=== PATIENT | female | born 1985 | race Hispanic/Latino ===

== ENCOUNTER 2021-12-21 11:59 | Emergency (ER) | payer OTHER ==
[~2021-12-21] VITALS: Ht 152.4 cm; Wt 66.2 kg
[2021-12-21 12:09] VITALS: BP 114/74
[2021-12-21] MEDS ORDERED: ACETAMINOPHEN 500 MG TABLET PO ONE (12:30)
[2021-12-21 14:12] LABS: APPEARANCE,URINE SL CLOUDY (CLEAR); BILIRUBIN,URINE NEGATIVE (NEGATIVE); COLOR,URINE YELLOW (YELLOW); GLUCOSE, URINE (UA) NEGATIVE (NEGATIVE); KETONES,URINE NEGATIVE (NEGATIVE); LEUKOCYTE ESTERASE ,URINE TRACE (NEGATIVE); NITRATE,URINE NEGATIVE (NEGATIVE); OCCULT BLOOD,URINE NEGATIVE (NEGATIVE); PH,URINE 6.5 (5.0-8.0); PROTEIN,URINE NEGATIVE (NEGATIVE)
[2021-12-21 14:22] LABS: HCG,QUALITATIVE URINE NEGATIVE (NEGATIVE)
[2021-12-21 14:56] LABS: BACTERIA,URINE Few /HPF (None Seen); MUCUS,URINE Few LPF (None Seen); SQUAMOUS EPITHELIAL CELL,UR Moderate /HPF (0-2)
[2021-12-21 14:58] LABS: CALCIUM OXALATE CRYSTALS,UR Rare /LPF (None Seen)
== END 2021-12-21 14:45 | disposition home or self-care (01) ==
LOC: EDH 11:59
DX: M54.2 Cervicalgia (principal); M25.552 Pain in left hip; M54.6 Pain in thoracic spine; V49.59XA Passenger injured in collision with other motor vehicles in traffic accident, initial encounter; Y93.89 Activity, other specified; Y92.413 State road as the place of occurrence of the external cause; Y99.8 Other external cause status
CPT/HCPCS: 70450; 72125; 73502; 81001; 81025; 82948; 87088

== ENCOUNTER 2022-02-28 08:42 | Emergency (ER) | payer OTHER ==
[~2022-02-28] VITALS: Ht 154.9 cm; Wt 63.5 kg
[2022-02-28] MEDS ORDERED: ACETAMINOPHEN 500 MG TABLET PO ONE (09:00)
[2022-02-28] MEDS ORDERED: D-ME118S47 PO (10:09)
[2022-02-28] MEDS ORDERED: ACET-66 PO (10:09)
[2022-02-28] MEDS ORDERED: IBUP-2070 PO (10:09)
[2022-02-28] MEDS ORDERED: OSEL75 PO (10:09)
[2022-02-28 10:13] VITALS: BP 124/78
== END 2022-02-28 10:18 | disposition home or self-care (01) ==
LOC: EDH 08:42
DX: J10.1 Influenza due to other identified influenza virus with other respiratory manifestations (principal); Z20.822 Contact with and (suspected) exposure to COVID-19; Z79.1 Long term (current) use of non-steroidal anti-inflammatories (NSAID)
CPT/HCPCS: 99283; 87635; 87804 ×2; C9803

== ENCOUNTER 2024-08-10 20:35 | Emergency (ER) | payer SELFPAY ==
[~2024-08-10] VITALS: Ht 152.4 cm; Wt 71.0 kg
[~2024-08-10 20:35] MED LIST: ACET-66 PO; BROM118S48 PO; IBUP-2070 PO; OSEL75 PO
[2024-08-10] MEDS: 0.9%NACL 1000ML 1,000 ML IV ONE (20:55)
--- NOTE | 2024-08-10 20:58 | ERN ---
ED Note History of Present Illness Stated Complaint: FEVER, HEADACHE, SYNCOPE Chief Complaint: Multiple Complaints Time Seen by MD: 20:45 Dictation: PATIENT IS A 39-YEAR-OLD FEMALE HERE WITH COMPLAINTS OF HAVING A SYNCOPAL EPISODE WITH A HEADACHE ONSET WHILE SHE WAS WALKING. NO NAUSEA VOMITING STATES SHE HAS HAD A FEVER. SHE STATES SHE HAS ALSO APPROXIMATELY 7-8 WEEKS , G 6P5 NO CARE. SHE STATES SHE HAS BEEN TO [facility] HOWEVER HAS NOT SEEN AN NEUROLOGY TEACHER DOCTOR [facility] IS 0. DENIES VAGINAL BLEEDING CRAMPING DISCHARGE Allergies: Coded Allergies: No Known Allergies (Unverified Allergy, Unknown, 12/21/21) Home Meds Active Scripts D-Methorphan Hb/P-Epd HCl/Bpm (Bromfed Dm Cough Syrup) 118 Ml Syrup, 10 ML PO QI D for COUGH, #120 ML Prov:DAVID HAYDEN MD 02/28/22 Oseltamivir Phosphate (Tamiflu) 75 Mg Cap, 75 MG PO BID for 5 Days, #10 CAP Prov:DAVID HAYDEN MD 02/28/22 Ibuprofen (Ibuprofen) 600 Mg Tablet, 600 MG PO Q6H PRN for PAIN, #30 TAB Prov:DAVID HAYDEN MD 02/28/22 Acetaminophen (Acetaminophen) 500 Mg Tablet, 1000 MG PO QID for FEVER, #50 TAB Prov:DAVID HAYDEN MD 02/28/22 Past Medical History Past Medical History: No Pertinent History Surgical History: Surgical History Other: X FIVE Social History: Negative, Lives with family History: Not Applicable LMP: Jun 25, 2024 : 6 Para: 5 RN Note Reviewed/Agreed w/PFSH: Yes Review of System Dictation CONSTITUTIONAL: NEGATIVE EXCEPT FOR HPI HEAD/FACE: NEGATIVE EXCEPT FOR HPI EENT: NEGATIVE EXCEPT FOR HPI RESPIRATORY: NEGATIVE EXCEPT FOR HPI GASTROINTESTINAL/ABDOMINAL: NEGATIVE EXCEPT FOR HPI GENITOURINARY: NEGATIVE EXCEPT FOR HPI MUSCULOSKELETAL: NEGATIVE EXCEPT FOR HPI INTEGUMENTARY: NEGATIVE EXCEPT FOR HPI NEUROLOGICAL/PSYCH: NEGATIVE EXCEPT FOR HPI HEADACHE NEAR-SYNCOPE HEMATOLOGIC/LYMPHATIC: NEGATIVE EXCEPT FOR HPI ALL SYSTEMS NEGATIVE, EXCEPT NOTED ABOVE. 13 POINT REVIEW OF SYSTEMS ASSESSED AND ALL NEGATIVE EXCEPT FOR ABOVE. Initial Vital Sign VS Vital Signs Date Time Temp Pulse Resp B/P (MAP) Pulse Ox O2 Delivery O2 Flow Rate FiO2 08/10/24 20:37 98.2 87 16 129/79 100 Room Air 08/10/24 20:49 0 21 Physical Exam Dictation VITAL SIGNS REVIEWED GENERAL APPEARANCE: ALERT, ORIENTED X 3, NO ACUTE DISTRESS, WELL DEVELOPED, NOURISHED. HEAD AND FACE: NON-TRAUMATIC. EYES: PERRL, PINK CONJUNCTIVAS, EYELID NO TRAUMA, ANTERIOR CHAMBER WITH ARCUS SENILIS. EARS: PINNAS INTACT AND NO SIGNS OF TRAUMA OR ERYTHEMA EAR CANALS CLEAR AND NO DISCHARGE TM NO ERYTHEMA NOSE: NO DISCHARGE, NO BLEEDING. OROPHARYNX: MOUTH NORMAL, TONGUE PINK, PHARYNX CLEAR,NO ERYTHEMA, TONSILS NO EXUDATES, NO ABSCESSES NOTED, MUCOUS MEMBRANE MOIST NECK: SUPPLE, NON-TENDER, NO THYROMEGALY, NO MASSES, NO JVD, NO BRUITS BREAST:DEFERRED CHEST:NO TENDERNESS, NO CREPITUS, NO PARADOXICAL MOVEMENT, NO RETRACTIONS LUNGS:CLEAR, WELL-VENTILATED, SYMMETRIC, NO RALES, NO WHEEZING, NO RHONCHI, NO STRIDOR, GOOD BREATH SOUNDS BILATERALLY HEART: REGULAR RATE, REGULAR RHYTHM, NO MURMUR, NO GALLOPS VASCULAR: NO PERIPHERAL EDEMA, ABDOMEN: SOFT, POSITIVE BOWEL SOUNDS, NONDISTENDED, NO GUARDING, NONTENDER, NO REBOUND, NO MASSES NO HEPATOMEGALY, NO SPLENOMEGALY, NO STARR'S SIGN, NO HERNIAS. RECTAL: DEFERRED GENITAL: DEFERRED NEUROLOGICAL: NORMAL SPEECH, MOTOR FUNCTION INTACT, SENSORY FUNCTION INTACT NIH IS 0 MUSCULOSKELETAL: NECK NONTENDER, FULL RANGE OF MOTION, BACK NONTENDER, FULL RA NGE OF MOTION, EXTREMITIES: NONTENDER, FULL RANGE OF MOTION SKIN: COLOR PINK, DRY, NO TURGOR, NO RASH, NO LACERATIONS, NO ABRASIONS, NO CONTUSIONS. LYMPHATIC: DEFERRED Results (Laboratory/Radiology) Laboratory/Radiology Laboratory Tests Test 08/10/24 20:48 08/10/24 21:46 White Blood Count 11.0 K/uL (4.8-10.8) H Red Blood Count 3.90 MIL/uL (4.00-5.50) L Hemoglobin 12.1 g/dL (12.0-16.0) Hematocrit 35.7 % (36-48) L Mean Corpuscular Volume 91.5 fL (79-99) Mean Corpuscular Hemoglobin 31.0 pg (27.0-33.0) Mean Corpuscular Hemoglobin Concent 33.9 g/dL (32.0-36.0) Red Cell Distribution Width 12.4 % (11.0-15.5) Platelet Count 214 K/uL (130-400) Mean Platelet Volume 10.3 fL (7.5-10.5) Immature Granulocyte % (Auto) 0.5 % (0-1) Neutrophils (%) (Auto) 65.7 % (40.0-77.0) Lymphocytes (%) (Auto) 24.5 % (21.0-51.0) Monocytes (%) (Auto) 6.3 % (3.0-13.0) Eosinophils (%) (Auto) 2.5 % (0.0-8.0) Basophils (%) (Auto) 0.5 % (0.0-5.0) Neutrophils # (Auto) 7.2 K/uL (1.8-7.7) Lymphocytes # (Auto) 2.7 K/uL (1.0-4.8) Monocytes # (Auto) 0.7 K/uL (0.1-1.0) Eosinophils # (Auto) 0.27 K/uL (0.00-0.70) Basophils # (Auto) 0.05 K/uL (0.00-0.20) Absolute Immature Granulocyte (auto 0.06 K/uL (0-1) Nucleated Red Blood Cells 0.0 % (0.0-0.19) Sodium Level 137 mmol/L (136-145) Potassium Level 3.7 mmol/L (3.5-5.1) Chloride Level 100 mmol/L (101-111) L Carbon Dioxide Level 25 mmol/L (21-32) Blood Urea Nitrogen 13 mg/dL (7-18) Creatinine 0.9 mg/dL (0.5-1.0) Glomerular Filtration Rate Calc 83 mL/min (>90) Random Glucose 102 mg/dL (70-105) Total Calcium 8.9 mg/dL (8.5-10.1) Troponin I High Sensitivity < 4 ng/L (4-50) L Human Chorionic Gonadotropin, Quant 97103 mIU/mL (0-5) H Urine Color STRAW (YELLOW) Urine Appearance CLEAR (CLEAR) Urine pH 6.5 (5.0-8.0) Urine Specific [place] 1.005 (1.001-1.031) Urine Protein NEGATIVE mg/dL (NEGATIVE) Urine Glucose (UA) NEGATIVE mg/dL (NEGATIVE) Urine Ketones NEGATIVE mg/dL (NEGATIVE) Urine Occult Blood NEGATIVE (NEGATIVE) Urine Nitrate NEGATIVE (NEGATIVE) Urine Bilirubin NEGATIVE mg/dL (NEGATIVE) Urine Urobilinogen 0.2 mg/dL (0.2-1.0) Urine Leukocyte Esterase NEGATIVE Víctor/uL Labs Reviewed?: Yes EKG: (+) NSR EKG Comment: EKG NORMAL SINUS RHYTHM/HEART RATE 92/AXIS NORMAL/NO ECTOPY ED Course ED Course Orders Procedure Category Date Status Time Cbc With Differential LAB 08/10/24 Complete 20:51 Troponin I High LAB 08/10/24 Complete Sensitivity 20:51 Hcg,Quantitative LAB 08/10/24 Complete 20:51 12 Lead Ekg Tracing- EKG 08/10/24 Complete Technical 20:51 0.9%Nacl 1000ml (Ns PHA 08/10/24 Complete 1000ml) 21:00 Basic Metabolic Panel LAB 08/10/24 Complete 20:51 Us Ob <14 Weeks US 08/10/24 Taken 20:52 Type And Screen BBK 08/10/24 Complete 20:52 Urinalysis Profile LAB 08/10/24 Complete 21:47 Current Medications Medications (Trade) Dose Ordered Sig/Seth Route PRN Reason Start Time Stop Time Status Last Admin Dose Admin Sodium Chloride 1,000 ml @ 0 mls/hr ONCE ONCE IV 08/10/24 21:00 08/10/24 21:01 DC 08/10/24 20:55 Vital Signs Date Time Temp Pulse Resp B/P (MAP) Pulse Ox O2 Delivery O2 Flow Rate FiO2 08/10/24 20:49 98.4 92 20 142/93 98 Room Air* 0 21 08/10/24 20:37 98.2 87 16 129/79 100 Room Air OB ULTRASOUND DEMONSTRATES SAC WITH NO POLE. NO VAGINAL BLEEDING. TOO EARLY NIH IS 0 HEART Score Response (Comments) Value History: Low suspicion (0) 0 EKG: Normal 0 Age: < 45yrs (0) 0 Risk Factors: No known risk factors (0) 0 Initial Troponin: Normal limit (0) 0 Total 0 Medical Decision Making MDM MEDICAL DISCHARGE MAKING BASED ON BASIC LABS/EKG AND OB ULTRASOUND. LABS ESSENTIALLY UNREMARKABLE OB ULTRASOUND DEMONSTRATES SAC WITHOUT POLE OR HEART TONES AT THIS TIME QUANT 97900 PATIENT ADVISED TO CONTINUE TYLENOL [id number], CONTINUE VITAMINS, SEE HER NEUROLOGY TEACHER DOCTOR DX & DISP Disposition: Discharge Departure Impression: Primary Impression: Vasovagal near-syncope Additional Impressions: at early stage, Dehydration Condition: Stable Additional Instructions: FOLLOW-UP WITH PRIMARY CARE PROVIDER IN 1 TO 2 DAYS. TAKE MEDICATIONS DIRECTED HERE IN THE EMERGENCY ROOM. OKAY TO CONTINUE HOME MEDICATIONS UNLESS OTHERWISE DISCUSSED DURING YOUR VISIT IN THE EMERGENCY ROOM TODAY. RETURN TO YOUR NEAREST EMERGENCY ROOM IF SYMPTOMS WORSEN OR IF THERE IS NO IMPROVEMENT. CALL 911 IF YOU NEED IMMEDIATE ASSISTANCE. TAKE TYLENO [id number] NEEDED AND IF NO CONTRAINDICATIONS ARE PRESENT. INCREASE ORAL HYDRATION. A WOUND CULTURE OR URINE CULTURE WAS ORDERED HERE IN THE EMERGENCY ROOM DEPARTMENT PLEASE FOLLOW-UP WITH PRIMARY CARE PROVIDER AND ADVISE THEM TO GET REPEAT PORTS FROM OUR FACILITY. IF YOU HAD ANY IGOR WRAP/SPLINTS THAT WERE APPLIED HERE, PLEASE DO NOT REMOVE THEM UNTIL YOU SEE YOUR PRIMARY CARE OR SPECIALTY. TAKE TYLENOL [id number] NEEDED FOR PAIN. FOLLOW UP WITH YOUR NEUROLOGY TEACHER DOCTOR IN THE NEXT 1-2 DAYS FOR REPEAT ULTRASOUND AND HCG QUANTITATIVE LEVEL. Referrals: SELF,REFERRAL (PCP) Time of Disposition: 22:27 I have reviewed the case, and I agree with, Diagnosis and Plan SHANNAN BYRNE NP Aug 10, 2024 20:58
[2024-08-10 21:12] LABS: BASOPHILS # (AUTO) 0.05 K/uL (0.00-0.20); BASOPHILS % (AUTO) 0.5 % (0.0-5.0); EOSINOPHILS # (AUTO) 0.27 K/uL (0.00-0.70); EOSINOPHILS % (AUTO) 2.5 % (0.0-8.0); HEMATOCRIT 35.7 % (36-48); IMMATURE GRANULOCYTE ABSOLUTE 0.06 K/uL (0-1); LYMPHOCYTES # (AUTO) 2.7 K/uL (1.0-4.8); LYMPHOCYTES % (AUTO) 24.5 % (21.0-51.0); MEAN CORPUSCULAR HGB CONC 33.9 g/dL (32.0-36.0); MEAN CORPUSCULAR VOLUME 91.5 fL (79-99); MONOCYTES # (AUTO) 0.7 K/uL (0.1-1.0); MONOCYTES % (AUTO) 6.3 % (3.0-13.0); NEUTROPHILS # (AUTO) 7.2 K/uL (1.8-7.7); NEUTROPHILS % (AUTO) 65.7 % (40.0-77.0); PLATELET COUNT (AUTO) 214 K/uL (130-400); RED CELL DISTRIBUTION WIDTH 12.4 % (11.0-15.5)
--- NOTE | 2024-08-10 21:18 | EKG ---
[facility] Test Date: 2024-08-10 Test Time: 21:16:27 Pat Name: JEAN-PAUL TELLEZ Department: ED Room: Gender: F [employer]: [id number] : 1985 Requested By: SHANNAN BYRNE Order Number: [id number] Reading MD: Kimberlee Arriaga Measurements Intervals [place] Rate: 92 P: 41 NH: 136 QRS: 61 QRSD: 83 T: 38 QT: 344 QTc: 426 Interpretive Statements Sinus rhythm No previous ECG available for comparison Electronically Signed On 08-11-2024 10:18:53 CDT by Kimberlee Arriaga Please click the below link to view image of tracing.
[2024-08-10 21:19] LABS: CREATININE 0.9 mg/dL (0.5-1.0); POTASSIUM 3.7 mmol/L (3.5-5.1)
[2024-08-10 22:13] LABS: APPEARANCE,URINE CLEAR (CLEAR); BILIRUBIN,URINE NEGATIVE (NEGATIVE); GLUCOSE, URINE (UA) NEGATIVE (NEGATIVE); KETONES,URINE NEGATIVE (NEGATIVE); LEUKOCYTE ESTERASE ,URINE NEGATIVE Leu/uL (NEGATIVE); NITRATE,URINE NEGATIVE (NEGATIVE); OCCULT BLOOD,URINE NEGATIVE (NEGATIVE); PH,URINE 6.5 (5.0-8.0); PROTEIN,URINE NEGATIVE (NEGATIVE); UROBILINOGEN,URINE 0.2 mg/dL (0.2-1.0)
[2024-08-10 22:15] LABS: ADD UA MICROSCOPIC NO; COLOR,URINE STRAW (YELLOW)
[2024-08-10] MEDS: acetaMINOPHEN 500 MG TABLET PO ONE (22:30)
[2024-08-10 22:36] VITALS: BP 132/85; PULSE 88; RESP 18; TEMP 98.1; O2SAT 98
--- NOTE | 2024-08-11 08:29 | HMCIMG ---
ULTRASOUND OF THE PELVIS ULTRASOUND ABD VASCULAR LIMITED INDICATION: Pelvic pain COMPARISONS: None TECHNIQUE: Transabdominal real-time sonographic images were acquired earlier, and subsequently made available for review. FINDINGS: The uterus measures 11.0 x 5.0 x 7.0 cm. 0.9 cm intramural anterior uterine body demonstrated. Single intrauterine gestational sac measuring 1.7 cm corresponding to estimated sonographic gestational age of 5 weeks 1 days, but pole was not well-demonstrated. Yolk sac is present. The right ovary measures 3.0 x 2.0 x 2.0 cm. The right ovary is normal in size, shape and echogenicity. No right adnexal masses demonstrated. Color Doppler flow is normal throughout the right ovary. Spectral Doppler analysis demonstrates a normal waveform pattern. The left ovary was not well-demonstrated. No free pelvic fluid demonstrated. IMPRESSION: Findings suggesting early intrauterine gestation for which continued surveillance of beta-hCG levels and short-term follow-up sonographic imaging is recommended.. Fibroid uterus.
== END 2024-08-10 23:17 | disposition home or self-care (01) ==
LOC: EDH 20:35
DX: O26.891 Other specified pregnancy related conditions, first trimester (principal); R55 Syncope and collapse; O99.281 Endocrine, nutritional and metabolic diseases complicating pregnancy, first trimester; E86.0 Dehydration; R10.2 Pelvic and perineal pain; Z3A.01 Less than 8 weeks gestation of pregnancy
CPT/HCPCS: 99284; 76801; 84484; 80048; 84702; 85025; 86850; 86900; 86901; 81003; 36415; 93005; J7030